=== PATIENT | female | born 1995 | race African-American/Black ===

== ENCOUNTER 2018-01-17 00:39 | Emergency (ER) | payer OTHER ==
[2018-01-17 00:45] VITALS: BP 134/93; PULSE 121; RESP 19; TEMP 100.8; O2SAT 99
[2018-01-17] MEDS ORDERED: IBUPROFEN 800 MG TAB PO ONE (01:00)
[2018-01-17] MEDS ORDERED: methylPREDNISolone SOD SUCC 125 MG/2 ML VIAL IV PUSH ONE (01:00)
[2018-01-17] MEDS ORDERED: SODIUM CHLORIDE 0.9% FLUSH 10 ML FLUSH IVF PRN (01:00)
[2018-01-17] MEDS ORDERED: RESP: BUDESONIDE 0.5 MG/2 ML NEB NEB ONE (01:00)
--- NOTE | 2018-01-17 01:04 | PD ---
HPI Chief Complaint: Respiratory Symptoms Time Seen by Provider: 00:54 Travel History International Travel<30 days: No Contact w/Intl Traveler<30days: No Traveled to known affect area: No History of Present Illness HPI Patient is a 22-year-old female presenting to the emergency department for evaluation of shortness of breath. Patient reports a history of asthma as a child. She states since Saturday she has had increasing shortness of breath, more so with exertion, wheezing, nasal congestion, cough and fevers. Patient states she was trying to wait it out however today her symptoms worsened. She has not taken any medications or nebulizer treatments. She states that she has not had an issue with asthma since she was a child. Symptom onset was gradual, symptoms are moderate in nature. She denies any nausea, vomiting, chest pain, abdominal pain. PFSH Past Medical History Asthma: Yes Diminished Hearing: No ?: Not LMP: 01/15/2018 Social History Alcohol Use: No Tobacco Use: No Substance Use: No Allergies-Medications (Allergen,Severity, Reaction): Coded Allergies: No Known Allergies (Unverified , 01/17/18) Reported Meds & Prescriptions Reported Meds & Active Scripts Active Ibuprofen 800 Mg Tab 800 Mg PO Q6HR PRN Azithromycin 250 Mg Tab 250 Mg PO DAILY 4 Days Ventolin Hfa 18 GM Inh (Albuterol Sulfate) 90 Mcg/Act Aer 2 Puff INH Q4-6H PRN Prednisone 50 Mg Tab 50 Mg PO DAILY 5 Days Budesonide Neb 0.5 Mg/2 Ml Neb 0.5 Mg NEB Q12HR NEB Albuterol Neb (Albuterol Sulfate) 2.5 Mg/3 Ml Neb 2.5 Mg NEB Q4HR NEB PRN Nebulizer 1 Mis Mis Ea .XX DIRECTED Review of Systems Except as stated in HPI: all other systems reviewed are Neg General / Constitutional: Positive: Fever, Chills HENT: No: Headaches Cardiovascular: No: Chest Pain or Discomfort Respiratory: Positive: Cough, Shortness of Breath, Wheezing Gastrointestinal: No: Nausea, Abdominal Pain Musculoskeletal: No: Myalgias Neurologic: No: Weakness, Dizziness, Syncope Physical Exam Narrative GENERAL: Well-developed, well-nourished, alert female. Presenting in no acute distress. SKIN: Warm and dry. HEAD: Atraumatic. Normocephalic. EYES: Pupils equal and round. No scleral icterus. No injection or drainage. ENT: No nasal bleeding or discharge. Mucous membranes pink and moist. NECK: Trachea midline. No JVD. CARDIOVASCULAR: Tachycardic RESPIRATORY: No accessory muscle use. Expiratory wheezes throughout. GASTROINTESTINAL: Abdomen soft, non-tender, nondistended. Hepatic and splenic margins not palpable. MUSCULOSKELETAL: Extremities without clubbing, cyanosis, or edema. No obvious deformities. NEUROLOGICAL: Awake and alert. No obvious cranial nerve deficits. Motor grossly within normal limits. Five out of 5 muscle strength in the arms and legs. Normal speech. PSYCHIATRIC: Appropriate mood and affect; insight and judgment normal. Data Data Last Documented VS Vital Signs Date Time Temp Pulse Resp B/P (MAP) Pulse Ox O2 Delivery O2 Flow Rate FiO2 01/17/18 04:24 99.1 98 18 97 Room Air 01/17/18 00:45 134/93 (107) Orders Orders Complete Blood Count With Diff (01/17/18 00:57) Comprehensive Metabolic Panel (01/17/18 00:57) Influenzae A/B Antigen (01/17/18 00:57) Iv Access Insert/Monitor (01/17/18 00:57) Oximetry (01/17/18 00:57) Ibuprofen (Motrin) (01/17/18 01:00) Sodium Chloride 0.9% Flush (Ns Flush) (01/17/18 01:00) Chest, Pa & Lat (01/17/18 00:57) Methylprednisolone So Succ Inj (Solumedr (01/17/18 01:00) Albuterol-Ipratropium Neb (Duoneb Neb) (01/17/18 01:00) Budesonide Neb (Pulmicort Respule Neb) (01/17/18 01:00) Sodium Chlor 0.9% 1000 Ml Inj (Ns 1000 M (01/17/18 01:15) Sodium Chlor 0.9% 1000 Ml Inj (Ns 1000 M (01/17/18 01:15) Acetaminophen (Tylenol) (01/17/18 02:30) Albuterol Neb (Albuterol Neb) (01/17/18 04:15) Azithromycin (Zithromax) (01/17/18 05:00) Ed Discharge Order (01/17/18 05:02) Labs Laboratory Tests Test 01/17/18 01:10 White Blood Count 8.2 TH/MM3 Red Blood Count 4.40 MIL/MM3 Hemoglobin 11.9 GM/DL Hematocrit 34.6 % Mean Corpuscular Volume 78.7 FL Mean Corpuscular Hemoglobin 27.1 PG Mean Corpuscular Hemoglobin Concent 34.5 % Red Cell Distribution Width 12.2 % Platelet Count 320 TH/MM3 Mean Platelet Volume 8.0 FL Neutrophils (%) (Auto) 68.7 % Lymphocytes (%) (Auto) 14.9 % Monocytes (%) (Auto) 11.7 % Eosinophils (%) (Auto) 4.2 % Basophils (%) (Auto) 0.5 % Neutrophils # (Auto) 5.6 TH/MM3 Lymphocytes # (Auto) 1.2 TH/MM3 Monocytes # (Auto) 1.0 TH/MM3 Eosinophils # (Auto) 0.3 TH/MM3 Basophils # (Auto) 0.0 TH/MM3 CBC Comment DIFF FINAL Differential Comment Blood Urea Nitrogen 9 MG/DL Creatinine 0.88 MG/DL Random Glucose 105 MG/DL Total Protein 8.2 GM/DL Albumin 3.8 GM/DL Calcium Level 9.0 MG/DL Alkaline Phosphatase 77 U/L Aspartate Amino Transf (AST/SGOT) 17 U/L Alanine Aminotransferase (ALT/SGPT) 17 U/L Total Bilirubin 0.3 MG/DL Sodium Level 141 MEQ/L Potassium Level 3.4 MEQ/L Chloride Level 105 MEQ/L Carbon Dioxide Level 26.0 MEQ/L Anion Gap 10 MEQ/L Estimat Glomerular Filtration Rate 82 ML/MIN MDM Medical Decision Making Medical Screen Exam Complete: Yes Emergency Medical Condition: Yes Interpretation(s) Last Impressions Chest X-Ray 01/17/18 0057 Signed Impressions: Service Date/Time: Wednesday, January 17, 2018 01:16 - CONCLUSION: Normal examination. Jose Henao MD Laboratory Tests Test 01/17/18 01:10 White Blood Count 8.2 TH/MM3 Red Blood Count 4.40 MIL/MM3 Hemoglobin 11.9 GM/DL Hematocrit 34.6 % Mean Corpuscular Volume 78.7 FL Mean Corpuscular Hemoglobin 27.1 PG Mean Corpuscular Hemoglobin Concent 34.5 % Red Cell Distribution Width 12.2 % Platelet Count 320 TH/MM3 Mean Platelet Volume 8.0 FL Neutrophils (%) (Auto) 68.7 % Lymphocytes (%) (Auto) 14.9 % Monocytes (%) (Auto) 11.7 % Eosinophils (%) (Auto) 4.2 % Basophils (%) (Auto) 0.5 % Neutrophils # (Auto) 5.6 TH/MM3 Lymphocytes # (Auto) 1.2 TH/MM3 Monocytes # (Auto) 1.0 TH/MM3 Eosinophils # (Auto) 0.3 TH/MM3 Basophils # (Auto) 0.0 TH/MM3 CBC Comment DIFF FINAL Differential Comment Blood Urea Nitrogen 9 MG/DL Creatinine 0.88 MG/DL Random Glucose 105 MG/DL Total Protein 8.2 GM/DL Albumin 3.8 GM/DL Calcium Level 9.0 MG/DL Alkaline Phosphatase 77 U/L Aspartate Amino Transf (AST/SGOT) 17 U/L Alanine Aminotransferase (ALT/SGPT) 17 U/L Total Bilirubin 0.3 MG/DL Sodium Level 141 MEQ/L Potassium Level 3.4 MEQ/L Chloride Level 105 MEQ/L Carbon Dioxide Level 26.0 MEQ/L Anion Gap 10 MEQ/L Estimat Glomerular Filtration Rate 82 ML/MIN Vital Signs Date Time Temp Pulse Resp B/P (MAP) Pulse Ox O2 Delivery O2 Flow Rate FiO2 01/17/18 04:24 99.1 98 18 97 Room Air 01/17/18 02:12 101.2 130 18 97 Room Air 01/17/18 00:45 100.8 121 19 134/93 (107) 99 Differential Diagnosis Influenza versus bronchitis versus pneumonia versus viral URI versus asthma exacerbation versus other Narrative Course Patient is a 22-year-old female presenting for evaluation of shortness of breath. Patient is a low-grade fever, she is also tachycardic. Labs and imaging ordered and pending. Ibuprofen, duo nebs, budesonide nebulizers ordered. CBC and chemistry are unremarkable. Chest x-ray shows no acute disease. Patient remains febrile after ibuprofen administration, she was given Tylenol. She was given 2 L of IV fluids. Lung sounds improved, patient reported improvement in her breathing. Patient's heart rate trended down from 130 to most recently 89 and her temp is 99.1. Patient is well-appearing, nontoxic. She will be given an additional albuterol nebulizer treatment now. She will be discharged home on azithromycin, prednisone and she will be given a prescription for albuterol as well. She is advised to follow-up with her primary doctor or return to emergency department for any new or worsening symptoms. She verbalizes understanding of these instructions. Patient stable for discharge. Diagnosis Primary Impression: Acute bronchitis Qualified Codes: J20.9 - Acute bronchitis, unspecified Additional Impression: Asthma exacerbation Qualified Codes: J45.901 - Unspecified asthma with (acute) exacerbation Referrals: [facility] 1 week Primary Care Physician 1 week Patient Instructions: General Instructions Additional Instructions: Follow-up with your primary doctor Use albuterol inhaler and nebulizers as needed and as directed Complete full course of antibiotics as prescribed Take ibuprofen as needed and as directed for fevers and pain Return to emergency department for any new or worsening symptoms Increase oral fluid intake. Med/Other Pt SpecificInfo: Prescription(s) given Scripts Ibuprofen (Ibuprofen) 800 Mg Tab 800 MG PO Q6HR Y for PAIN, #40 TAB 0 Refills Prov: Marina Cat 01/17/18 Azithromycin (Azithromycin) 250 Mg Tab 250 MG PO DAILY for Infection for 4 Days, #4 TAB 0 Refills Prov: Marina Cat 01/17/18 Albuterol 18 GM Inh (Ventolin Hfa 18 GM Inh) 90 Mcg/Act Aer 2 PUFF INH Q4-6H Y for SHORTNESS OF BREATH, #1 INHALER 0 Refills Prov: Marina Cat 01/17/18 Prednisone (Prednisone) 50 Mg Tab 50 MG PO DAILY for 5 Days, #5 TAB 0 Refills Prov: Marina Cat 01/17/18 Budesonide Neb (Budesonide Neb) 0.5 Mg/2 Ml Neb 0.5 MG NEB Q12HR NEB for Breathing Treatment, #60 NEBULE 0 Refills Prov: Marina Cat 01/17/18 Albuterol Neb (Albuterol Neb) 2.5 Mg/3 Ml Neb 2.5 MG NEB Q4HR NEB Y for SHORTNESS OF BREATH, #60 NEBULE 0 Refills Prov: Marina Cat 01/17/18 Nebulizer (Nebulizer) 1 Mis Mis EA .XX DIRECTED for Breathing Treatment, #1 0 Refills Prov: Marina Cat 01/17/18 Disposition: 01 DISCHARGE HOME Condition: Stable Marina Cat January 17, 2018 01:04
[2018-01-17] MEDS ORDERED: SODIUM CHLOR 0.9% 1000 ML INJ 1,000 ML IV ONE ×2 (01:15)
[2018-01-17] MEDS: RESP: ALBUTEROL 2.5 MG/IPRATROPIUM 0.5 MG NEB (SCH) INH ×2 (01:26→01:27)
[2018-01-17 01:37] LABS: AUTOMATED NEUTROPHIL # 5.6 TH/MM3 (1.8-7.7); BASOPHIL % 0.5 % (0.0-2.0); EOSINOPHIL # 0.3 TH/MM3 (0-0.4); EOSINOPHIL % 4.2 % (0.0-4.0); HEMATOCRIT 34.6 % (35.0-46.0); HEMOGLOBIN 11.9 GM/DL (11.6-15.3); LYMPH % 14.9 % (9.0-44.0); LYMPHOCYTE # 1.2 TH/MM3 (1.0-4.8); MEAN CELL VOLUME 78.7 FL (80.0-100.0); MEAN CORPUSCULAR HEMOGLOBIN 27.1 PG (27.0-34.0); MEAN CORPUSCULAR HGB CONC 34.5 % (32.0-36.0); MONO % 11.7 % (0.0-8.0); NEUT % 68.7 % (16.0-70.0); PLATELET COUNT 320 TH/MM3 (150-450); RED CELL DISTRIBUTION WIDTH 12.2 % (11.6-17.2); WHITE BLOOD COUNT 8.2 TH/MM3 (4.0-11.0)
--- NOTE | 2018-01-17 01:45 | RADRPT ---
EXAM DATE/TIME: 01/17/2018 01:16 [place] COMPARISON: No previous studies available for comparison. INDICATIONS : Wheezing and shortness of breath. MEDICAL HISTORY : Asthma. SURGICAL HISTORY : None. ENCOUNTER: Initial ACUITY: 4 - 6 days PAIN SCORE: 0/10 LOCATION: Bilateral chest FINDINGS: PA and lateral views of the chest demonstrate the lungs to be symmetrically aerated without evidence of mass, infiltrate or effusion. The cardiomediastinal contours are unremarkable. Osseous structure s are intact. CONCLUSION: Normal examination. Jose Henao MD on January 17, 2018 at 1:42 Board Certified Radiologist. This report was verified electronically.
[2018-01-17 01:46] LABS: ALBUMIN 3.8 GM/DL (3.4-5.0); ALT (GPT) 17 U/L (9-42); AST (GOT) 17 U/L (16-38); BLOOD UREA NITROGEN 9 MG/DL (7-18); CHLORIDE 105 MEQ/L (98-107); CREATININE 0.88 MG/DL (0.50-1.00); GLOMERULAR FILTRATION RATE 82 ML/MIN (>89); GLUCOSE,RANDOM 105 MG/DL (74-106); SODIUM (NA) 141 MEQ/L (136-145)
[2018-01-17 01:50] LABS: ALKALINE PHOSPHATASE 77 U/L (45-117); TOTAL BILIRUBIN ADULT 0.3 MG/DL (0.2-1.0); TOTAL PROTEIN 8.2 GM/DL (6.4-8.2)
[2018-01-17 02:12] VITALS: PULSE 130; RESP 18; TEMP 101.2; O2SAT 97
[2018-01-17] MEDS ORDERED: ACETAMINOPHEN 325 MG TAB PO ONE (02:30)
[2018-01-17] MEDS ORDERED: RESP: ALBUTEROL 2.5 MG/3 ML NEB (SCH) NEB ONE (04:15)
[2018-01-17 04:24] VITALS: PULSE 98; RESP 18; TEMP 99.1; O2SAT 97
[2018-01-17] MEDS ORDERED: NEBULIZER1 MI1 (04:56)
[2018-01-17] MEDS ORDERED: ALBU0.08 NEB (04:56)
[2018-01-17] MEDS ORDERED: VENTAER INH (04:56)
[2018-01-17] MEDS ORDERED: PRED50 PO (04:56)
[2018-01-17] MEDS ORDERED: BUDE0.5S NEB (04:56)
[2018-01-17] MEDS ORDERED: AZIT250T3 PO (04:56)
[2018-01-17] MEDS ORDERED: IBUP1TAB7 PO (04:56)
[2018-01-17] MEDS ORDERED: AZITHROMYCIN 250 MG TAB PO ONE (05:00)
== END 2018-01-17 05:22 | disposition home or self-care (01) ==
LOC: NEPD 00:39
DX: J45.901 Unspecified asthma with (acute) exacerbation (principal); R00.0 Tachycardia, unspecified; Z79.51 Long term (current) use of inhaled steroids; Z79.899 Other long term (current) drug therapy
CPT/HCPCS: 71046; 80053; 85025; 87804; 94640; 94664; 96361; 96374; 99284; J2930; J7030; J7613; J7626